=== PATIENT | female | born 1990 ===

== ENCOUNTER 2020-07-07 01:23 | Emergency (ER) | payer SELFPAY ==
[2020-07-07 01:56] VITALS: BP 141/92; PULSE 100; RESP 16; TEMP 36.6; O2SAT 98; BMI 23.3
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
[2020-07-07] MEDS: Ibuprofen 600 MG TABLET PO (02:31)
== END 2020-07-07 02:54 | disposition home or self-care (01) ==
PROVIDERS: Emergency Provider Internal Medicine
DX: S01.511A Laceration without foreign body of lip, initial encounter (principal); G50.1 Atypical facial pain; Y04.2XXA Assault by strike against or bumped into by another person, initial encounter; Y93.9 Activity, unspecified; Y92.009 Unspecified place in unspecified non-institutional (private) residence as the place of occurrence of the external cause; Y99.9 Unspecified external cause status; Z71.89 Other specified counseling
CPT/HCPCS: 12011; 99283; 99284

== ENCOUNTER 2021-08-12 13:00 | Emergency (ER) | payer OTHER, SELFPAY ==
--- NOTE | ~2021-08-12 | US_ITS ---
EXAMINATION: US OBSTETRICAL ULTRASOUND CLINICAL INFORMATION: Early , bleeding. bHCG 182. COMPARISON: None. LMP: 06/29/2021. Gestational age by maternal dates is 6 weeks 2 days. Estimated date of delivery by maternal dates is 04/05/2022. TECHNIQUE: Ultrasound of the maternal pelvis is performed using transabdominal and transvaginal transducers. Transvaginal imaging is performed due to inadequate visualization transabdominally. M-mode Doppler is also performed. FINDINGS: There is no visible intrauterine gestational sac. The endometrial thickness is 0.6 cm. No visible fibroid. There is no adnexal mass or pelvic ascites. There is normal color flow to the adnexa. Right ovary measures 2.8 x 1.5 x 2.7. There is an avascular intraovarian dominant follicle or small cyst in the right ovary measuring 2.4 x 1.0 x 2.0 cm. The left ovary measures 2.5 x 1.7 x 1.9 cm. US/US OB pelvic and transvaginal IMPRESSION: 1. No visible intrauterine gestational sac. Endometrial double wall thickness is 6 mm. 2. No visible adnexal mass or pelvic ascites. Right intraovarian dominant follicle or small cyst 2.4 cm.
[2021-08-12 13:21] VITALS: BP 102/77; PULSE 96; RESP 18; TEMP 36.7; O2SAT 98; BMI 20.9
[2021-08-12 13:53] LABS: MANUAL DIFF FLAG NO
[2021-08-12 13:58] LABS: Basophils Absolute Auto 0.1 X10*3/uL (0.0-0.2); Basophils Percent Auto 1.2 % (0-2); Eosinophils Absolute Auto 0.4 X10*3/uL (0.0-0.4); Eosinophils Percent Auto 4.4 % (0-4); Hematocrit 40.2 % (37.0-47.0); Hemoglobin 13.5 g/dl (12.0-16.0); Imm Gran Abs Auto 0.01 X10*3/uL (0.00-0.03); Imm Gran Pct Auto 0.1 % (0.0-0.4); Lymphocytes Absolute Auto 1.8 X10*3/uL (1.2-4.9); Lymphocytes Percent Auto 22.4 % (20-40); Mean Corpuscular HGB Conc 33.6 g/dl (31.0-35.0); Mean Corpuscular Hemoglobin 33.5 pg (27.0-33.0); Mean Corpuscular Volume 99.8 fL (80.0-98.0); Mean Platelet Volume 9.2 fL (9.4-12.3); Monocytes Absolute Auto 0.7 X10*3/uL (0.1-1.2); Monocytes Percent Auto 8.8 % (2-11); Neutrophils Absolute Auto 5.1 x10*3/uL (2.0-8.3); Neutrophils Percent Auto 63.1 % (45-73); Platelet Count 331 X10*3/uL (160-400); Red Blood Count 4.03 X10*6/uL (4.20-5.50); White Blood Count 8.1 X10*3/uL (4.8-10.8)
[2021-08-12 14:16] LABS: COVID-19 Test Negative (Negative); IDNOW Serial# 9DD0AD1C
[2021-08-12 14:17] LABS: Alanine Aminotransferase 43 U/L (0-31); Albumin Level 4.1 g/dL (3.5-5.0); Alkaline Phosphatase 64 U/L (39-117); Anion Gap 7 (12-20); Aspartate Amino Transferase 34 U/L (5-31); Bilirubin Total 0.3 mg/dL (0.0-1.0); Blood Urea Nitrogen 11 mg/dL (9-16); Calcium 9.4 mg/dL (8.4-10.2); Carbon Dioxide 30 mmol/L (22-29); Chloride 104 mmol/L (96-108); Creatinine Clr Calc Pharmacy 94.8; Estimated Glomerular Filt Rate > 60; Glucose Random 88 mg/dL (60-115); Potassium 4.1 mmol/L (3.3-5.1); Sodium 137 mmol/L (135-145); Total Protein 6.8 g/dL (6.5-8.0)
[2021-08-12 14:21] LABS: HCG Quantitative 182 mIU/mL
[2021-08-12 15:20] LABS: Appearance Urine HAZY; Color Urine YELLOW; Glucose Urine UA NEG (NEG); Leukocyte Esterase Urine NEG (NEG); Nitrite Urine NEG (NEG); Specific Gravity - Urine >= 1.030 (1.005-1.025); UACC Culture Trigger NO; Urine Blood 3+ (NEG); Urine Ketones NEG (NEG); Urine Protein 1+ MG/DL (NEG-TRACE)
[2021-08-12 15:28] LABS: WBC Urine 0 /HPF (0-4)
[2021-08-12 15:29] LABS: Bacteria Urine 1+ /LPF; RBC Urine 50-75 /HPF (0); Squamous Epithelial Cell Urine TRACE /LPF
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
--- NOTE | 2021-08-12 18:19 | P.CONOB_ITS ---
FUTURES TRADER - CN: HPI Data of Consult Consult date: 08/12/21 Primary Care Provider: None Physician Consult Narrative Narrative: I was consulted by ISAAK Dexter on Samara Wasserman who is a 31 year old female presented the emergency room complaining of spotting/light bleeding since yesterday. HCG quantitative is a 182. Ultrasound done showed no intrauterine . Rh negative. No pelvic pain cc:: CC: OB [facility] Past Medical History Medical History Asthma Social History Social History Alcohol intake: current Alcohol intake frequency: a few times a week Advance Directives: No Advance Directives Information Provided: No Meds Allergies Allergy/AdvReac Type Severity Reaction Status Date / Time shellfish derived Allergy Intermediate SWELLING Verified 08/12/21 13:21 [SHELLFISH DERIVED] FUTURES TRADER Physical Exam Vitals Vital signs: Temp Pulse Resp BP Pulse Ox 98.1 F 96 18 102/77 98 08/12/21 13:21 08/12/21 13:21 08/12/21 08/12/21 08/12/21 13:21 13:21 13:21 BMI result Verdana 4 Body Mass Index Verdana 4 20.9 Verdana 4 Verdana 4 FUTURES TRADER - Results Labs CBC & Chem 7: 08/12/21 13:28 08/12/21 13:28 Labs: Short CBC 08/12/21 Range/Units 13:28 WBC 8.1 (4.8-10.8) X10*3/uL Hgb 13.5 (12.0-16.0) g/dl Hct 40.2 (37.0-47.0) % Plt Count 331 (160-400) X10*3/uL BMP 08/12/21 13:28 Sodium 137 Potassium 4.1 Chloride 104 Carbon Dioxide 30 H BUN 11 Creatinine 0.80 Calcium 9.4 Liver Function 08/12/21 Range/Units 13:28 Total Bilirubin 0.3 (0.0-1.0) mg/dL AST 34 H (5-31) U/L ALT 43 H (0-31) U/L Alkaline Phosphatase 64 (39-117) U/L Albumin 4.1 (3.5-5.0) g/dL Urine 08/12/21 Range/Units 15:06 Urine Color YELLOW Urine Appearance HAZY Urine pH 6.0 (5.0-8.0) Ur Specific [place] >= 1.030 H (1.005-1.025) Urine Protein 1+ H (NEG-TRACE) MG/DL Urine Glucose (UA) NEG (NEG) MG/DL Assessment and Plan (1) Vaginal bleeding: Status: Acute Plan Recommended to ISAAK Dexter the following: Differential diagnosis include SAB versus intrauterine early versus ectopic since the bleeding started yesterday and today's hCG is 182 , the is very early, Rh negative, vacation for RhoGAM. SAB/ectopic warnings to be given to patient, Follow-up tomorrow in the office with hCG quantitative, instructions to be given to patient to come back to the emergency room in case of pelvic pain, persistent of worsening of vaginal bleeding, and follow-up in the office tomorrow I was consulted by phone regarding this patient, I did not see the patient nor examine her.
== END 2021-08-12 18:32 | disposition home or self-care (01) ==
PROVIDERS: Emergency Provider Internal Medicine
DX: O20.0 Threatened abortion (principal); O00.80 Other ectopic pregnancy without intrauterine pregnancy; Z3A.01 Less than 8 weeks gestation of pregnancy; Z20.822 Contact with and (suspected) exposure to COVID-19
CPT/HCPCS: 76801; 76817; 80053; 81001; 84702; 85025; 86900; 86901; 87635; 99282; 99284

== ENCOUNTER 2021-08-14 15:01 | Outpatient (REF) | payer OTHER, SELFPAY ==
[2021-08-14 16:03] LABS: HCG Quantitative 61 mIU/mL
== END 2021-08-14 15:02 | disposition home or self-care (01) ==
LOC: HO.LAB 15:01
PROVIDERS: Visit Provider Obstetrics & Gynecology
DX: O03.9 Complete or unspecified spontaneous abortion without complication (principal)
CPT/HCPCS: 36415; 84702

== ENCOUNTER 2021-08-16 08:31 | Outpatient (REF) | payer OTHER, SELFPAY ==
[2021-08-16 09:17] LABS: HCG Quantitative 28 mIU/mL
[2021-08-16 15:52] LABS: CT PCR NOT DETECTED (Not Detect.); NG PCR NOT DETECTED (Not Detect.)
== END 2021-08-16 08:32 | disposition home or self-care (01) ==
LOC: HO.LAB 08:31
PROVIDERS: Visit Provider Obstetrics & Gynecology
DX: O00.90 Unspecified ectopic pregnancy without intrauterine pregnancy (principal); O03.9 Complete or unspecified spontaneous abortion without complication
CPT/HCPCS: 36415; 84702; 87491; 87591; 99212

== ENCOUNTER 2021-09-01 13:43 | Outpatient (REF) | payer OTHER, SELFPAY ==
[2021-09-01 15:19] LABS: HCG Quantitative < 2 mIU/mL
== END 2021-09-01 13:44 | disposition home or self-care (01) ==
LOC: HO.LAB 13:43
PROVIDERS: Visit Provider Obstetrics & Gynecology
DX: O03.9 Complete or unspecified spontaneous abortion without complication (principal)
CPT/HCPCS: 36415; 84702

== ENCOUNTER 2022-11-29 19:36 | Emergency (ER) | payer OTHER, SELFPAY ==
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
[2022-11-29 20:03] VITALS: BP 127/70; PULSE 115; RESP 22; TEMP 36.8; O2SAT 96; BMI 26.4
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
[2022-11-29] MEDS: ondansetron HCL 4 MG/2 ML VIAL IVPUSH (20:56)
[2022-11-29] MEDS: Morphine Sulfate 4 MG/ML CARTRIDGE IVPUSH (20:56)
[2022-11-29] MEDS: LORazepam 2 MG/ML VIAL 1 MG IVPUSH (20:57)
[2022-11-29 20:59] LABS: MANUAL DIFF FLAG NO
[2022-11-29 21:00] LABS: Basophils Absolute Auto 0.1 X10*3/uL (0.0-0.2); Basophils Percent Auto 0.6 % (0-2); Eosinophils Absolute Auto 0.5 X10*3/uL (0.0-0.4); Eosinophils Percent Auto 3.2 % (0-4); Hemoglobin 13.2 g/dl (12.0-16.0); Imm Gran Abs Auto 0.06 X10*3/uL (0.00-0.03); Imm Gran Pct Auto 0.4 % (0.0-0.4); Lymphocytes Absolute Auto 1.6 X10*3/uL (1.2-4.9); Lymphocytes Percent Auto 11.1 % (20-40); Mean Corpuscular HGB Conc 34.7 g/dl (31.0-35.0); Mean Corpuscular Hemoglobin 33.8 pg (27.0-33.0); Mean Corpuscular Volume 97.2 fL (80.0-98.0); Mean Platelet Volume 8.8 fL (9.4-12.3); Neutrophils Percent Auto 77.7 % (45-73); Platelet Count 317 X10*3/uL (160-400); Red Blood Count 3.91 X10*6/uL (4.20-5.50); Red Cell Distribution Width 12.8 % (11.0-16.0); White Blood Count 14.2 X10*3/uL (4.8-10.8)
[2022-11-29 21:13] LABS: Ethanol 122 mg/dL
[2022-11-29 21:18] LABS: Alanine Aminotransferase 20 U/L (0-31); Albumin Level 4.3 g/dL (3.5-5.0); Alkaline Phosphatase 66 U/L (39-117); Anion Gap 11 (12-20); Aspartate Amino Transferase 24 U/L (5-31); Bilirubin Direct 0.1 mg/dL (0.0-0.5); Bilirubin Total 0.3 mg/dL (0.0-1.0); Blood Urea Nitrogen 9 mg/dL (9-16); Calcium 9.3 mg/dL (8.4-10.2); Carbon Dioxide 26 mmol/L (22-29); Chloride 108 mmol/L (96-108); Creatinine Clr Calc Pharmacy 93.5; Estimated Glomerular Filt Rate > 60; Glucose Random 100 mg/dL (60-115); Magnesium 1.9 mg/dL (1.6-2.6); Potassium 4.3 mmol/L (3.3-5.1); Sodium 141 mmol/L (135-145); Total Protein 6.9 g/dL (6.5-8.0)
--- NOTE | 2022-11-29 21:45 | PC.NURSE ---
Pt A&Ox4, reports 10/10 right sided facial pain. Small laceration to right cheek and on top of right eyebrow noted. Right ear swelling, and abrasion to mid upper back. IV line placed, blood work collected and sent to lab.
--- NOTE | 2022-11-29 21:49 | PC.NURSE ---
pt ambulated to restroom friend at bedside
[2022-11-29 22:01] LABS: HCG Quantitative < 2 mIU/mL
[2022-11-29] MEDS: SUMAtriptan succinate 50 MG TABLET PO (22:09)
--- NOTE | 2022-11-29 22:10 | PC.NURSE ---
Jonathan RN to bedside for medication admin per orders. Pt found sitting upright awake and alert with her right eye swollen with limited vision from that eye. She reports 10/10 headache/head pain primarily to the right side of her face. The pt inquired about previous medication administration as she denies any relief from pain thus far. Pt remains with bedside visitor at bedside and call meng in reach. Bathroom light turned off per request and for comfort.
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
[2022-11-29] MEDS: oxyCODONE HCl Immed Release 5 MG TABLET PO (22:57)
[2022-11-29] MEDS: Amoxicillin/Potassium Clav 500 MG TABLET PO (22:57)
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
[2022-11-30] MEDS: LORazepam 1 MG TABLET 2 MG PO (00:08)
== END 2022-11-30 00:16 | disposition home or self-care (01) ==
PROVIDERS: Emergency Provider Emergency Medicine
DX: S00.81XA Abrasion of other part of head, initial encounter (principal); S30.810A Abrasion of lower back and pelvis, initial encounter; S01.111A Laceration without foreign body of right eyelid and periocular area, initial encounter; S00.83XA Contusion of other part of head, initial encounter; S00.03XA Contusion of scalp, initial encounter; S10.93XA Contusion of unspecified part of neck, initial encounter; Y04.2XXA Assault by strike against or bumped into by another person, initial encounter; Y93.9 Activity, unspecified; Y92.019 Unspecified place in single-family (private) house as the place of occurrence of the external cause; Y99.9 Unspecified external cause status
CPT/HCPCS: 12011; 36415; 70450; 70486; 71045; 72125; 80048; 80076; 80307; 83735; 84702; 85025; 96374; 96375; 99284; J2060; J2270; J2405